=== PATIENT | female | born 2005 | race Hispanic/Latino ===

== ENCOUNTER 2025-03-13 11:47 | Outpatient (CLI) | payer OTHER | END 2025-03-13 11:48 | disposition home or self-care (01) | LOC: CSHRAD 11:47 | DX: M54.50 Low back pain, unspecified (principal); Q76.6 Other congenital malformations of ribs; Q76.49 Other congenital malformations of spine, not associated with scoliosis; M47.816 Spondylosis without myelopathy or radiculopathy, lumbar region; M47.817 Spondylosis without myelopathy or radiculopathy, lumbosacral region; M48.061 Spinal stenosis, lumbar region without neurogenic claudication; M48.07 Spinal stenosis, lumbosacral region | CPT/HCPCS: 72100 ==